=== PATIENT | male | born 1960 | race Caucasian/White ===

== ENCOUNTER 2018-02-05 01:07 | Emergency (ER) | payer OTHER ==
[2018-02-05 01:27] VITALS: RESP 20; TEMP 97.6; O2SAT 99
[2018-02-05] MEDS ORDERED: DiphenhydrAMINE 50 mg/ml Inj IVP STA (01:45)
--- NOTE | 2018-02-05 01:56 | C.PDOC ---
History Of Present Illness 57 y/o male with PMHx of migraine headaches presents to the ED for evaluation of headache. Patient reports increasing frequency in his usual migraine headaches over the past 3 weeks. Describes squeezing pain to both temples, associated with nausea. Denies recent fever, neck pain/stiffness, photophobia, rash, or visual changes. Patient was initially brought to [facility] [place] where he noted the wait was long so he came over here. States it is not the worst headache of his life. Time Seen by Provider: 02/05/18 01:43 Chief Complaint (Nursing): Headache History Per: Family (son translating in Faroese for patient) History/Exam Limitations: no limitations Onset/Duration Of Symptoms: Intermittent Episodes Current Symptoms Are (Timing): Still Present Quality: Squeezing Past Medical History Reviewed: Historical Data, Nursing Documentation, Vital Signs Vital Signs: Last Vital Signs Temp 97.6 F 02/05/18 01:22 Pulse 62 02/05/18 01:22 Resp 20 02/05/18 01:22 BP 140/87 02/05/18 01:22 Pulse Ox 99 02/05/18 02:45 - Medical History PMH: Migraine Surgical History: No Surg Hx Family History: States: No Known Family Hx - Social History Hx Tobacco Use: Yes Hx Alcohol Use: No Hx Substance Use: No - Immunization History Hx Tetanus Toxoid Vaccination: No Hx Influenza Vaccination: No Hx Pneumococcal Vaccination: No Review Of Systems Except As Marked, All Systems Reviewed And Found Negative. Constitutional: Negative for: Fever, Chills Eyes: Negative for: Vision Change Gastrointestinal: Positive for: Nausea. Negative for: Vomiting Musculoskeletal: Negative for: Neck Pain Skin: Negative for: Rash Neurological: Positive for: Headache. Negative for: Weakness, Numbness, Incoordination, Change in Speech Physical Exam - Physical Exam Appears: Non-toxic, No Acute Distress Skin: Warm, Dry, No Rash Head: Atraumatic, Normacephalic Eye(s): bilateral: Normal Inspection, PERRL, EOMI Nose: Normal Oral Mucosa: Moist Neck: Normal ROM, Supple, No Other (meningismus) Chest: Symmetrical Cardiovascular: Rhythm Regular, No Murmur, Other (S1,S2 are wnl) Respiratory: No Rales, No Rhonchi, No Wheezing, Other (Lungs CTA bilaterally) Gastrointestinal/Abdominal: Soft, No Tenderness Extremity: Bilateral: Atraumatic, Normal Color And Temperature, Normal ROM Neurological/Psych: Oriented x3, Normal Speech, Normal Cranial Nerves (2-12 intact), Normal Motor (Upper and lower extremities have 5/5 strength, no pronator drift), Normal Sensation, Other (Negative kernigs and brudzinskis) ED Course And Treatment O2 Sat by Pulse Oximetry: 99 (RA) Pulse Ox Interpretation: Normal Medical Decision Making Medical Decision Making: Impression: Migraine headache Time: 1:44 Initial Plan: * Toradol 30 mg IV * Compazine 5 mg IV * Benadryl 25 mg IV * IVF hydration * Reassessment 2:44 On reevaluation patient reports headache is improved. Will d/c home with fioricet prescription. Disposition Counseled Patient/Family Regarding: Diagnosis, Need For Followup, Rx Given - Disposition Referrals: [facility] [Outside] Disposition: HOME/ ROUTINE Disposition Time: 02:45 Condition: IMPROVED Prescriptions: Acetaminophen/Butalbital/Caf [Fioricet] 1 tab PO QID PRN #20 tab PRN Reason: Pain, Mild (1-3) Instructions: Migraine Headache (DC) Forms: [employer] (Romanian) Print Language: ALBANIAN - POA Present On Arrival: None - Clinical Impression Clinical Impression: Migraine - Scribe Statement The provider has reviewed the documentation as recorded by the Scribe (Irlanda Amador) Provider Attestation: All medical record entries made by the Scribe were at my direction and personally dictated by me. I have reviewed the chart and agree that the record accurately reflects my personal performance of the history, physical exam, medical decision making, and the department course for this patient. I have also personally directed, reviewed, and agree with the discharge instructions and disposition.
[2018-02-05] MEDS ORDERED: Sodium Chloride 0.9% 1,000 ML ONE (01:58)
[2018-02-05] MEDS: Sodium Chloride 0.9% 500 ML IV ONE ×2 (02:00→02:03)
[2018-02-05] MEDS ORDERED: DiphenhydrAMINE 50 mg/ml Inj ONE (02:08)
[2018-02-05 03:27] VITALS: BP 127/84; PULSE 60
== END 2018-02-05 03:30 | disposition home or self-care (01) ==
LOC: C.ER 01:07
DX: G43.909 Migraine, unspecified, not intractable, without status migrainosus (principal)
CPT/HCPCS: 82948; 96374; 96375; 99285; J0780; J1200; J1885; J7040